=== PATIENT | female | born 1970 | race African-American/Black ===

== ENCOUNTER 2020-12-08 18:56 | Emergency (ER) | payer OTHER ==
[~2020-12-08] VITALS: Ht 162.6 cm; Wt 127.0 kg
[2020-12-08 19:09] VITALS: BP 139/82
[2020-12-08] MEDS ORDERED: AZITHROMYCIN 500 MG TABLET PO ONE (23:15)
[2020-12-08] MEDS ORDERED: AZIT500T8 MT (23:23)
== END 2020-12-08 22:29 | disposition home or self-care (01) ==
LOC: ER 19:13
DX: J18.9 Pneumonia, unspecified organism (principal); Z20.822 Contact with and (suspected) exposure to COVID-19; R03.0 Elevated blood-pressure reading, without diagnosis of hypertension
CPT/HCPCS: 71045; 99284; C9803; U0003; U0005

== ENCOUNTER 2020-12-21 09:25 | Emergency (ER) | payer OTHER ==
[~2020-12-21] VITALS: Ht 162.6 cm; Wt 73.0 kg
[~2020-12-21 09:25] MED LIST: AZIT500T8 MT
[2020-12-21] MEDS ORDERED: CHLO473M2 MT (11:29)
[2020-12-21] MEDS ORDERED: NYST15OI TP (11:29)
[2020-12-21 12:01] VITALS: BP 136/86
== END 2020-12-21 12:02 | disposition home or self-care (01) ==
LOC: ER 09:25
DX: R21 Rash and other nonspecific skin eruption (principal); Z79.899 Other long term (current) drug therapy
CPT/HCPCS: 99283